=== PATIENT | female | born 1995 | race Hispanic/Latino ===

== ENCOUNTER 2020-08-19 21:58 | Emergency (ER) | payer OTHER, SELFPAY ==
[2020-08-20 00:19] LABS: Absolute Lymphocytes (CBC) 1.5 K/uL (0.7-4.9); Basophils % 0.5 % (0-1.3); Hematocrit 42.6 % (36.0-45.0); Lymphocytes % 17.3 % (15.3-44.8); MPV 8.7 fL (7.6-11.3); RBC Red Blood Cell Count 4.88 M/uL (3.86-4.86)
[2020-08-20 00:35] LABS: Albumin 3.9 g/dL (3.4-5.0); Bilirubin Direct 0.1 mg/dL (0-0.2); Bilirubin Total 0.4 mg/dL (0.2-1.0); Potassium 3.5 mmol/L (3.5-5.1)
--- NOTE | 2020-08-20 01:30 | ER ---
Nurse's Notes [facility] Name: Harper Cool Age: 24 yrs Sex: Female : 1995 Arrival Date: 08/19/2020 Time: 22:01 Bed 18 Private MD: Diagnosis: Cough;Willard Virus Exposure Presentation: 08/19 22:10 Chief complaint: Patient states: Chest pain with coughing, vomiting that began at the lp1 beginning of this week; States tested positive last week with symptom of low grade fever. Coronavirus screen: Client denies travel out of the [place] in the last 14 days. cough unrelated to allergies, fatigue, fever, nausea, sore throat, loss of taste or smell, vomiting. Client presents with at least one sign or symptom that may indicate coronavirus-19. Standard/surgical mask placed on the client. Provider contacted for isolation considerations. Ebola Screen: No symptoms or risks identified at this time. Risk Assessment: Do you want to hurt yourself or someone else? Patient reports no desire to harm self or others. Onset of symptoms was August 15, 2020. 22:10 Method Of Arrival: Ambulatory lp1 22:10 Acuity: TOBIN 3 lp1 22:19 Initial Sepsis Screen: Does the patient meet any 2 criteria? No. Patient's initial lp1 sepsis screen is negative. Does the patient have a suspected source of infection? No. Patient's initial sepsis screen is negative. 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 - Social history:: Smoking status: Patient denies any tobacco usage or history of. Screenin:13 Abuse screen: Denies threats or abuse. Denies injuries from another. Nutritional lp1 screening: No deficits noted. Tuberculosis screening: No symptoms or risk factors identified. Fall Risk None identified. Assessment: 22:10 General: Appears in no apparent distress. uncomfortable, Behavior is calm, cooperative, rr5 appropriate for age. Pain: Complains of pain in chest Pain currently is 5 out of 10 on a pain scale. Quality of pain is described as aching, Pain began gradually, Is intermittent. Neuro: Level of Consciousness is awake, alert, obeys commands, Oriented to person, place, time, situation. Cardiovascular: Reports chest pain, Capillary refill < 3 seconds Patient's skin is warm and dry. Respiratory: Reports cough that is Airway is patent Respiratory effort is even, unlabored, Respiratory pattern is regular, symmetrical. GI: Reports vomiting. : No signs and/or symptoms were reported regarding the genitourinary system. EENT: No signs and/or symptoms were reported regarding the EENT system. Derm: Skin is intact, is healthy with good turgor, Skin temperature is warm. Musculoskeletal: Circulation, motion, and sensation intact. Capillary refill < 3 seconds. 23:40 Reassessment: Patient appears in no apparent distress at this time. Patient is alert, rr5 oriented x 3, equal unlabored respirations, skin warm/dry/pink. seen and examined by ED provider. 08/20 00:20 Reassessment: Patient appears in no apparent distress at this time. Patient is alert, rr5 oriented x 3, equal unlabored respirations, skin warm/dry/pink. awaiting for results. 00:55 Reassessment: Patient appears in no apparent distress at this time. ED provider rr5 informed patient persistent coughing. 01:45 Reassessment: Patient appears in no apparent distress at this time. Patient is alert, rr5 oriented x 3, equal unlabored respirations, skin warm/dry/pink. discharge instruction given and explained without complaints made. Vital Signs: 08/19 22:19 BP 116 / 60; Pulse 89; Resp 18; Temp 98.8(O); Pulse Ox 99% on R/A; Weight 77.11 kg (R); lp1 Height 5 ft. 5 in. (165.10 cm); 23:00 BP 126 / 89; Pulse 86; Resp 15; Pulse Ox 98% ; rr5 08/20 00:00 BP 122 / 79; Pulse 75; Resp 14; Pulse Ox 100% ; rr5 01:10 BP 134 / 80; Pulse 80; Resp 16; Pulse Ox 99% ; rr5 01:45 BP 131 / 70; Pulse 89; Resp 20; Temp 99; Pulse Ox 99% ; rr5 08/19 22:19 Body Mass Index 28.29 (77.11 kg, 165.10 cm) lp1 ED Course: 08/19 22:01 Patient arrived in ED. am2 22:10 Patient has correct armband on for positive identification. Placed in gown. Bed in low rr5 position. Call light in reach. Pulse ox on. NIBP on. 22:12 Triage completed. lp1 22:12 Arm band placed on. lp1 22:21 Tone Singh, RN is Primary Nurse. rr5 22:51 Gorge Nunez MD is Attending Physician. 7 23:00 Inserted saline lock: 22 gauge in right forearm, using aseptic technique. Blood rr5 collected. 08/20 00:14 Chest Single View XRAY In Process Unspecified. EDMS 01:19 No provider procedures requiring assistance completed. rr5 01:50 IV discontinued, intact, bleeding controlled, No redness/swelling at site. Pressure rr5 dressing applied. Administered Medications: No medications were administered Outcome: 01:30 Discharge ordered by . mh7 01:50 Discharged to home ambulatory. rr5 01:50 Condition: stable 01:50 Discharge instructions given to patient, Instructed on discharge instructions, follow up and referral plans. medication usage, Demonstrated understanding of instructions, follow-up care, medications, Prescriptions given X 4. 01:51 Patient left the ED. rr5 Signatures: Dispatcher [employer] EDMS Omaira Sahni RN RN lp1 Madeline Barron am2 Tone Singh, RN RN rr5 Gorge Nunez MD MD [facility] Corrections: (The following items were deleted from the chart) 08/19 22:20 22:10 Coronavirus screen: Client denies travel out of the [place] in the last 14 days. lp1 cough unrelated to allergies, fatigue, fever, nausea, sore throat, loss of taste or smell, vomiting. lp1
--- NOTE | 2020-08-20 01:31 | EDPHYS ---
Physician Documentation [facility] Name: Harper Cool Age: 24 yrs Sex: Female : 1995 Arrival Date: 08/19/2020 Time: 22:01 Bed 18 Private MD: ED Physician Gorge Nunez HPI: 08/20 01:01 This 24 yrs old Female presents to ER via Ambulatory with complaints of Cough, mh7 Chest Pressure. 01:02 The patient or guardian reports cough, that is intermittent, with productive sputum, mh7 that is white. Onset: The symptoms/episode began/occurred 1 week(s) ago. Severity of symptoms: At their worst the symptoms were moderate, 2 day(s) ago, in the emergency department the symptoms have improved, moderately. Modifying factors: The symptoms are alleviated by nothing, the symptoms are aggravated by nothing. Associated signs and symptoms: Pertinent negatives: diarrhea, ear ache, rhinorrhea, sore throat. 01:04 Associated signs and symptoms: Pertinent positives: chest pain, with cough, fever, mh7 nausea, vomiting, Pertinent negatives:. Patient states that she has had a productive cough for one week. States that her and sister tested positive for COVID two weeks ago.. 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 - Social history:: Smoking status: Patient denies any tobacco usage or history of. ROS: 08/20 01:04 Eyes: Negative for injury, pain, redness, and discharge, ENT: Negative for injury, mh7 pain, and discharge, Neck: Negative for injury, pain, and swelling, Back: Negative for injury and pain, : Negative for injury, bleeding, discharge, and swelling, MS/Extremity: Negative for injury and deformity, Skin: Negative for injury, rash, and discoloration, Neuro: Negative for headache, weakness, numbness, tingling, and seizure, Psych: Negative for depression, anxiety, suicide ideation, homicidal ideation, and hallucinations, Allergy/Immunology: Negative for hives, rash, and allergies, Endocrine: Negative for neck swelling, polydipsia, polyuria, polyphagia, and marked weight changes, Hematologic/Lymphatic: Negative for swollen nodes, abnormal bleeding, and unusual bruising. Exam: 01:27 Constitutional: This is a well developed, well nourished patient who is awake, alert, mh7 and in no acute distress. Head/Face: Normocephalic, atraumatic. Eyes: Pupils equal round and reactive to light, extra-ocular motions intact. Lids and lashes normal. Conjunctiva and sclera are non-icteric and not injected. Cornea within normal limits. Periorbital areas with no swelling, redness, or edema. Neck: Trachea midline, no thyromegaly or masses palpated, and no cervical lymphadenopathy. Supple, full range of motion without nuchal rigidity, or vertebral point tenderness. No Meningismus. Chest/axilla: Normal chest wall appearance and motion. Nontender with no deformity. No lesions are appreciated. Cardiovascular: Regular rate and rhythm with a normal S1 and S2. No gallops, murmurs, or rubs. Normal PMI, no JVD. No pulse deficits. Respiratory: Lungs have equal breath sounds bilaterally, clear to auscultation and percussion. No rales, rhonchi or wheezes noted. No increased work of breathing, no retractions or nasal flaring. Abdomen/GI: Soft, non-tender, with normal bowel sounds. No distension or tympany. No guarding or rebound. No evidence of tenderness throughout. Back: No spinal tenderness. No costovertebral tenderness. Full range of motion. Skin: Warm, dry with normal turgor. Normal color with no rashes, no lesions, and no evidence of cellulitis. MS/ Extremity: Pulses equal, no cyanosis. Neurovascular intact. Full, normal range of motion. Neuro: Awake and alert, GCS 15, oriented to person, place, time, and situation. Cranial nerves II-XII grossly intact. Motor strength 5/5 in all extremities. Sensory grossly intact. Cerebellar exam normal. Normal gait. Psych: Awake, alert, with orientation to person, place and time. Behavior, mood, and affect are within normal limits. Vital Signs: 08/19 22:19 BP 116 / 60; Pulse 89; Resp 18; Temp 98.8(O); Pulse Ox 99% on R/A; Weight 77.11 kg (R); lp1 Height 5 ft. 5 in. (165.10 cm); 23:00 BP 126 / 89; Pulse 86; Resp 15; Pulse Ox 98% ; rr5 08/20 00:00 BP 122 / 79; Pulse 75; Resp 14; Pulse Ox 100% ; rr5 01:10 BP 134 / 80; Pulse 80; Resp 16; Pulse Ox 99% ; rr5 01:45 BP 131 / 70; Pulse 89; Resp 20; Temp 99; Pulse Ox 99% ; rr5 08/19 22:19 Body Mass Index 28.29 (77.11 kg, 165.10 cm) lp1 MDM: 08/19 23:39 Patient medically screened. [facility] 08/20 01:27 Differential Diagnosis: Obstructed Airway Bronchitis Influenza Upper Respiratory [facility] Infection Viral Syndrome Pneumonia. Data reviewed: vital signs, nurses notes, lab test result(s), CBC, electrolytes, urinalysis, EKG, radiologic studies, plain films. Data interpreted: Pulse oximetry: on room air is 99 %. Interpretation: normal. Counseling: I had a detailed discussion with the patient and/or guardian regarding: the historical points, exam findings, and any diagnostic results supporting the discharge/admit diagnosis, lab results, radiology results, the need for outpatient follow up, to return to the emergency department if symptoms worsen or persist or if there are any questions or concerns that arise at home. Response to treatment: the patient's symptoms have markedly improved after treatment. 08/19 22:33 Order name: COVID-19 lp1 08/19 23:41 Order name: CBC with Diff; Complete Time: 00:46 [facility] 08/19 23:41 Order name: Chest Single View XRAY [facility] 08/19 23:41 Order name: Basic Metabolic Panel; Complete Time: 00:46 [facility] 08/19 23:41 Order name: LFT's; Complete Time: 00:46 [facility] 08/19 23:41 Order name: Saline Lock; Complete Time: 00:04 [facility] 08/19 23:41 Order name: EKG - Nurse/Tech; Complete Time: 00:04 [facility] 08/19 23:42 Order name: Urine Dipstick-Ancillary (obtain specimen); Complete Time: 01:08 [facility] 08/19 23:42 Order name: Urine Test (obtain specimen); Complete Time: 01:08 [facility] Administered Medications: No medications were administered Disposition: 08/20/20 01:30 Discharged to Home. Impression: Cough, Willard Virus Exposure. - Condition is Stable. - Discharge Instructions: COVID-19, Cough, Adult, [id number], Viral Respiratory Infection, [id number]-An-Bnux. - Prescriptions for Tessalon Perles 100 mg Oral Capsule - take 1 capsule by ORAL route every 8 hours As needed; 15 capsule. Zithromax Z- Arnie 250 mg Oral Tablet - take 1 tablet by ORAL route as directed for 5 days Day 1 - take two (2) tablets one time. Day 2, 3, 4 , 5 take one (1) tablet once daily.; 6 tablet. Prednisone 20 mg Oral Tablet - take 2 tablet by ORAL route once daily for 5 days; 10 tablet. Albuterol Sulfate 90 mcg/actuation - inhale 1-2 puff by INHALATION route every 4-6 hours; 1 Inhaler. - Medication Reconciliation Form, Thank You Letter, Antibiotic Education, Prescription Opioid Use form. - Follow up: Private Physician; When: 1 - 2 days; Reason: Worsening of condition, Recheck today's complaints, Continuance of care, Re-evaluation by your physician. - Problem is new. - Symptoms have improved. Signatures: Dispatcher [employer] EDMS Omaira Sahni RN RN lp1 Tone Singh RN RN rr5 Gorge Nunez MD MD 7 Corrections: (The following items were deleted from the chart) 01:51 01:30 08/20/2020 01:30 Discharged to Home. Impression: Cough; Willard Virus Exposure. rr5 Condition is Stable. Forms are Medication Reconciliation Form, Thank You Letter, Antibiotic Education, Prescription Opioid Use. Follow up: Private Physician; When: 1 - 2 days; Reason: Worsening of condition, Recheck today's complaints, Continuance of care, Re-evaluation by your physician. Problem is new. Symptoms have improved. [facility]
[2020-08-20 02:07] VITALS: O2SAT 99
[2020-08-20 02:09] VITALS: BP 131/70; TEMP 99
--- NOTE | 2020-08-20 09:35 | RAD REPORT ---
EXAM DESCRIPTION: RAD - Chest Single View - 08/20/2020 12:14 am CLINICAL HISTORY: COUGH COMPARISON: None. FINDINGS: Single frontal radiograph view of the chest. Cardiomediastinal silhouette: Normal size and contour. Lungs: No consolidation, pneumothorax, or pleural effusion. Bones: No acute osseous abnormality. Low lung volumes. Upper abdomen: No abnormality identified. IMPRESSION: 1. No acute pulmonary process identified. Electronically signed by: Kyle Willis 08/20/2020 12:59 AM CDT Due to temporary technical issues with the PACS/Fluency reporting system, reports are being signed by the in house radiologist without review as a courtesy to ensure prompt reporting. The interpreting r adiologist is fully responsible for the content of the report.
== END 2020-08-20 01:51 | disposition home or self-care (01) ==
LOC: ER 21:58
DX: U07.1 COVID-19 (principal)
CPT/HCPCS: 93005; 85025; 80048; 36415; 80076; 71045; 99284; U0002

== ENCOUNTER 2021-07-13 16:19 | Emergency (ER) | payer SELFPAY ==
--- OUTSIDE RECORDS SUMMARY | 2021-07-13 16:23 | XMS REPORT | Continuity of Care Document ---
:1995 Author Organization [facility] t Address [address] [place] [address] Care Team Providers Name Role Phone Stephanie Chirinos Attending Clinician Problems This patient has no known problems. Allergies, Adverse Reactions, Alerts This patient has no known allergies or adverse reactions. Medications This patient has no known medications. Procedures This patient has no known procedures. Encounters Start End Encounter Admission Attending Care Care Encounter Source Date/Time Date/Time Type Type Clinicians Facility Department ID 2021-07-09 2021-07-09 Telephone LYNN Gamboa [id number] 00:00:00 00:00:00 Stephanie Bradley PASTE WORKER [id number] [facility] [id number] MATERNAL [id number] & CHILD 107 [facility] 2021-07-04 2021-07-04 Office LYNN Gamboa [id number] 08:44:49 09:30:49 Visit Stephanie Bradley PASTE WORKER [id number] [facility] [id number] MATERNAL [id number] & CHILD 107 [facility] Results This patient has no known results.
--- NOTE | 2021-07-13 17:40 | ER ---
Nurse's Notes [facility] Name: Harper Cool Age: 25 yrs Sex: Female : 1995 Arrival Date: 07/13/2021 Time: 16:20 Bed Waiting Private MD: Diagnosis: Assessment: 07/13 17:38 Reassessment: Called to Triage twice. No answer and unable to locate patient. ss ED Course: 16:20 Patient arrived in ED. ds1 17:18 Triage completed. iw Administered Medications: No medications were administered Outcome: 17:38 Eloped from waiting room. ss 17:39 Patient left the ED. ss 18:35 Patient left the ED. ss Signatures: Stacy Pollock ds1 Jenae Coronel RN RN Nury Rosario RN RN Corrections: (The following items were deleted from the chart) 17:20 17:14 Chief complaint: Parent and/or Guardian states: fever for 3 days, "bump" iw behind/under left ear for 1.5 weeks. Was started on clindamycin on the , but symptoms getting worse. Went back to PCP today and was sent here for evaluation : 17:14 Ebola Screen: Patient negative for fever greater than or equal to 101.5 degrees iw Fahrenheit, and additional compatible Ebola Virus Disease symptoms Patient denies exposure to infectious person. Patient denies travel to an Ebola-affected area in the 21 days before illness onset. No symptoms or risks identified at this time. 17: 17:14 Onset of symptoms was July 13, 2021 [facility] 17:14 Method Of Arrival: Ambulatory [facility] 17:14 Acuity: TOBIN 3 [facility] 17:14 Coronavirus screen: Client denies travel out of the [place] in the last 14 days. iw fever, : 17:14 Initial Sepsis Screen: Does the patient meet any 2 criteria? No. Patient's iw initial sepsis screen is negative. Does the patient have a suspected source of infection? No. Patient's initial sepsis screen is negative. : 17:14 Risk Assessment: Do you want to hurt yourself or someone else? Patient reports no iw desire to harm self or others. : 17:14 Chief complaint: Parent and/or Guardian states: fever for 3 days, "bump" iw behind/under left ear for 1.5 weeks. Was started on clindamycin on the 10th, but symptoms getting worse. Went back to PCP today and was sent here for evaluation iw 17:24 17:14 Pulse 124bpm; Resp 22bpm; Pulse Ox 99%; Temp 100.3F; 31.03 kg; Pain 7/10; iw iw
== END 2021-07-13 18:35 | disposition left against medical advice (07) ==
LOC: ER 16:19
DX: Z53.21 Procedure and treatment not carried out due to patient leaving prior to being seen by health care provider (principal)
CPT/HCPCS: 99281

== ENCOUNTER 2021-10-18 12:56 | Emergency (ER) | payer SELFPAY ==
--- OUTSIDE RECORDS SUMMARY | 2021-10-18 13:01 | XMS REPORT | Continuity of Care Document ---
:1995 Author Organization [facility] t Address [address] [place] [address] [address] [place] [address] Care Team Providers Name Role Phone ANGELA NELSON Primary Care Physician Unavailable Kirk NDIAYE Attending Clinician Unavailable Calvin FERRER Attending Clinician Unavailable Senthil MANAGER EMBALMER FUNERAL DIRECTOR, R Attending Clinician Julia VANEGAS Attending Clinician Unavailable Visit, Nurse Attending Clinician Unavailable Julia Martínez Attending Clinician Doctor Unassigned, Name Attending Clinician Unavailable BEN NELSON Attending Clinician Unavailable Ben Nelson MD Attending Clinician Jo-Ann HERNANDEZ Attending Clinician Tremayne CAMARENA Attending Clinician Oziel MONREAL, S Attending Clinician Juanjose Johnston MD Attending Clinician Payers Payer Name Policy Type Policy Number Effective Date Expiration Date S ource Advance Directives Directive Decision Effective Termination Comments Source Date Date Healthcare Agents on N/A [facility] Agent Medical RelationshipCommunicationHighsmith-Rainey Specialty Hospitala [facility] Care [phone] (Mobile) Problems Condition Condition Condition Status Onset Resolution Last Treating Co mments Source Name Details Category Date Date Treatment Clinician Date Screening Screening Disease Active Uni vers examinatio examinatio 06-13 it [place] of n [place] STD n [place] ([place] Medi liane transmitte transmitte Br anch d disease) d disease) BMI BMI Disease Active Univers 35.0-35.9, 35.0-35.9, 7-14 it y of adult adult 00:00: [place] [address] Medical Branch Absence of Absence of Disease Active U nivers menstruati menstruati 06-13 it y of on on 00:00: [place] [address] Medical Branch Wound Wound Disease Active Univers infection infection 06-05 ity of 00:00: [place] [address] Medical Branch Foreign Foreign Disease Active Univers body body 6-04 [place] accidental [place] 00 Medical during a during a Branch procedure procedure Disease Active U nivers complicati complicati - it y of on on 00:00: [place] [address] Medical Branch S/P S/P Disease Active Univers 6-03 ity of section section 00:00: [place] [address] Medical Branch Foreign Foreign Disease Active Overview: Univ ers body body 6-03 Formattin ity of accidental accidental 00:00: g of this [place] ly left ly left 00 note Medical during a during a might be Bran ch procedure, procedure, different initial initial from the encounter encounter original. 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, onitis, 5-29 ity of [place] current 00 Medical hospitaliz hospitaliz Br anch ation ation Displaceme Displaceme Disease Active U nivers nt of nt of 5-29 ity of epidural epidural 00:00: [place] infusion infusion 00 Medica l catheter catheter Branch Class 2 Class 2 Disease Active Univers obesity obesity 5-29 it[place] of with body with body 00:[place] mass index mass index 00 Me dical (BMI) of (BMI) of Branch 35.0 to 35.0 to 35.9 in 35.9 in adult, adult, unspecifie unspecifie d obesity d obesity type, type, unspecifie unspecifie d whether d whether serious serious comorbidit comorbidit y present y present Delayed Delayed Disease Active Univers delivery delivery 5-26 ity of after SROM after SROM 00:[place] (spontaneo (spontaneo 00 Me dical us rupture us rupture Br anch of of membranes) membranes) antepart antepart Supervisio Supervisio Disease Active 2017-12 U nivers n of high n of high 0-03 ity of risk risk 00:00: [place] , , 00 Me dical antepartum antepartum Br anch History of History of Disease Active 2017-12 U nivers anxiety anxiety 0-03 ity of 00:00: [place] [address] Medical Branch History of History of Disease Active 2017-12 U nivers depression depression 0-03 it y of 00:00: [address] Allergies, Adverse Reactions, Alerts Allergy Allergy Status Severity Reaction(s) Onset Inactive Treating Comm ents Source Name Type Date Date Clinician NO KNOWN Drug Active Univers ALLERGIE Class ity of S [facility] Social History Social Habit Start Date Stop Date Quantity Comments Source Exposure to Not sure [facility] SARS[facility]CoV-2 [facility] (event[facility] Branch Tobacco use and 2021-07-04 2021-07-04 Never used Universit y of exposure 00:00:00 00:00:[address] [facility] Alcohol intake 2021-07-04 2021-07-04 Current [facility] 00:00:00 00:00:00 non-drinker of [facility] alcohol [place] (finding) Sex Assigned At [birth year] Universit y of 00:00:00 00:00:[address] [facility] Smoking Status Start Date Stop Date Source Never smoker [facility] Medications Ordered Filled Start Stop Current Ordering Indication Dosage Frequency Signature Comments Components Source Medication Medication Date Date Medication? Clinician (SIG) Name Name norgestimat Yes [id number] 1{tbl} Take 1 Univers e-ethinyl 8-09 tablet by ity o f estradioL 00:00: mouth [place] 0.18/0.215/ 00 daily. Medica l 0.25 mg-25 Branch mcg tablet norgestimat Yes [id number] 1{tbl} Take 1 Univers e-ethinyl 8-04 tablet by ity o f estradioL 00:00: mouth [place] 0.18/0.215/ 00 daily. Medica l 0.25 mg-25 Branch mcg tablet norgestimat Yes [id number] 1{tbl} Take 1 Univers e-ethinyl 8-04 tablet by ity o f estradioL 00:00: mouth [place] 0.18/0.215/ 00 daily. Medica l 0.25 mg-25 Branch mcg tablet norgestimat 2020-0 Yes [id number] 1{tbl} Take 1 Univers e-ethinyl 8-04 tablet by ity o f estradioL 00:00: mouth [place] 0.18/0.215/ 00 daily. Medica l 0.25 mg-25 Branch mcg tablet norgestimat 202- No [id number] 1{tbl} Take 1 Univers e-ethinyl 8-04 08-09 tablet by ity of estradioL 00:00: 00:00 mouth [place] 0.18/0.215/ 00 :00 daily. Medica l 0.25 mg-25 Branch mcg tablet terbinafine Yes 250mg Take 250 U nivers HCL 250 mg 4-25 mg by ity of tablet 00:00: mouth [place] 00 daily. Medical Branch terbinafine 2020- No 250mg Take 250 Univers HCL 250 mg 4-25 07-14 mg by ity of tablet 00:00: 00:00 mouth [place] 00 :00 daily. Medical Branch terbinafine 2020- No 250mg Take 250 Univers HCL 250 mg 4-25 07-14 mg by ity of tablet 00:00: 00:00 mouth [place] 00 :00 daily. Medical Branch nystatin Yes [id number] Apply to Univers 100,000 8-19 area(s) 2 ity of unit/gram 00:00: (two) [place] powder 00 times Medical daily. Branch nystatin 2018-0 Yes [id number] Apply to Univers 100,000 8-19 area(s) 2 ity of unit/gram 00:00: (two) [place] powder 00 times Medical daily. Branch nystatin 2019-0 Yes [id number] Apply to Univers 100,000 8-19 area(s) 2 ity of unit/gram 00:00: (two) [place] powder 00 times Medical daily. Branch nystatin 2019-0 Yes [id number] Apply to Univers 100,000 8-19 area(s) 2 ity of unit/gram 00:00: (two) [place] powder 00 times Medical daily. Branch nystatin 2019-0 Yes [id number] Apply to Univers 100,000 8-19 area(s) 2 ity of unit/gram 00:00: (two) [place] powder 00 times Medical daily. Branch nystatin 2019-0 Yes [id number] Apply to Univers 100,000 8-19 area(s) 2 ity of unit/gram 00:00: (two) [place] powder 00 times Medical daily. Branch nystatin 2019-0 Yes [id number] Apply to Univers 100,000 8-19 area(s) 2 ity of unit/gram 00:00: (two) [place] powder 00 times Medical daily. Branch nystatin 2019-0 2021- No [id number] Apply to Univers 100,000 8-19 07-14 area(s) 2 ity of unit/gram 00:00: 00:00 (two) [place] powder 00 :00 times Medical daily. Branch nystatin 2019-0 2021- No [id number] Apply to Univers 100,000 8-19 07-14 area(s) 2 ity of unit/gram 00:00: 00:00 (two) [place] powder 00 :00 times Medical daily. Branch hydrOXYzine 2018- Yes [id number] 10mg Take 1 Univers 10 mg 8-16 tablet by ity of tablet 00:00: mouth [place] 00 every 6 Medical (six) Branch hours as needed for Anxiety. hydrOXYzine 2019 Yes [id number] 10mg Take 1 Univers 10 mg 8-16 tablet by ity of tablet 00:00: mouth [place] 00 every 6 Medical (six) Branch hours as needed for Anxiety. hydrOXYzine 2019 2019- No [id number] 10mg Take 1 Univers 10 mg 8-16 08-26 tablet by ity of tablet 00:00: 00:00 mouth [place] 00 :00 every 6 Medical (six) Branch hours as needed for Anxiety. hydrOXYzine 2019- No [id number] 10mg Take 1 Univers 10 mg 8-16 08-26 tablet by ity of tablet 00:00: 00:00 mouth [place] 00 :00 every 6 Medical (six) Branch hours as needed for Anxiety. hydrOXYzine 2019- No [id number] 10mg Take 1 Univers 10 mg 8-16 -26 tablet by ity of tablet 00:00: 00:00 mouth [place] 00 :00 every 6 Medical (six) Branch hours as needed for Anxiety. PNV 2019- No Take by Univers no.95/quinn 06-28-29 mouth. ity o f us 18:36: 00:00 [place] fum/folic 10 :00 Medical ac Branch ( ORAL) docusate Yes [id number] 100mg Take 1 Un [place] 100 mg 7-07 capsule by ity of capsule 00:00: mouth [place] 00 daily. Medical Branch docusate 0 Yes [id number] 100mg Take 1 Un [place] 100 mg 7-07 capsule by ity of capsule 00:00: mouth [place] 00 daily. Medical Branch docusate 2018- Yes [id number] 100mg Take 1 Un [place] 100 mg 7-07 capsule by ity of capsule 00:00: mouth [place] 00 daily. Medical Branch docusate Yes [id number] 100mg Take 1 Un [place] 100 mg 7-07 capsule by ity of capsule 00:00: mouth [place] 00 daily. Medical Branch docusate 2018-0 Yes [id number] 100mg Take 1 Un [place] 100 mg 7-07 capsule by ity of capsule 00:00: mouth [place] 00 daily. Medical Branch docusate 2018-0 Yes [id number] 100mg Take 1 Un [place] 100 mg 7-07 capsule by ity of capsule 00:00: mouth [place] 00 daily. Medical Branch docusate 2019-0 Yes [id number] 100mg Take 1 Un [place] 100 mg 7-07 capsule by ity of capsule 00:00: mouth [place] 00 daily. Medical Branch docusate 2019-0 Yes [id number] 100mg Take 1 Un [place] 100 mg 7-07 capsule by ity of capsule 00:00: mouth [place] 00 daily. Medical Branch docusate 2018-0 2019- No [id number] 100mg Take 1 U nivers 100 mg 7-07 08-26 capsule by ity of capsule 00:00: 00:00 mouth [place] 00 :00 daily. Medical Branch docusate 0 2019- No [id number] 100mg Take 1 U nivers 100 mg 06-06 capsule by ity of capsule 00:00: 00:00 mouth [place] 00 :00 daily. Medical Branch docusate 2019- No [id number] 100mg Take 1 U nivers 100 mg 06-06 capsule by ity of capsule 00:00: 00:00 mouth [place] 00 :00 daily. Medical Branch 2019- No [id number] 1{tbl} Take 1 Univers vitamin 06-06 tablet by ity of w/FA tablet 00:00: [place] :00 daily. Medical Branch nystatin 2019-0 Yes [id number] Apply to Univers 100,000 6-18 area(s) 2 ity of unit/gram 00:00: (two) [place] powder 00 times Medical daily. Branch sodium 2019-0 Yes [id number] 5mL Irrigate 5 Univers chlor-hypoc 6-18 mL daily. ity of hlorous 00:00: [place] acid (VASHE 00 Medical WOUND Branch THERAPY) 0.033 % IrSl nystatin 2019-0 Yes [id number] Apply to Univers 100,000 6-18 area(s) 2 ity of unit/gram 00:00: (two) [place] powder 00 times Medical daily. Branch sodium 2019-0 Yes [id number] 5mL Irrigate 5 Univers chlor-hypoc 6-18 mL daily. ity of hlorous 00:00: [place] acid (VASHE 00 Medical WOUND Branch THERAPY) 0.033 % IrSl nystatin 2019-0 Yes [id number] Apply to Univers 100,000 6-18 area(s) 2 ity of unit/gram 00:00: (two) [place] powder 00 times Medical daily. Branch sodium 2019-0 Yes [id number] 5mL Irrigate 5 Univers chlor-hypoc 6-18 mL daily. ity of hlorous 00:00: [place] acid (VASHE 00 Medical WOUND Branch THERAPY) 0.033 % IrSl nystatin 2019-0 Yes [id number] Apply to Univers 100,000 6-18 area(s) 2 ity of unit/gram 00:00: (two) [place] powder 00 times Medical daily. Branch sodium 2019-0 Yes [id number] 5mL Irrigate 5 Univers chlor-hypoc 6-18 mL daily. ity of hlorous 00:00: [place] acid (VASHE 00 Medical WOUND Branch THERAPY) 0.033 % IrSl nystatin 2019-0 Yes [id number] Apply to Univers 100,000 6-18 area(s) 2 ity of unit/gram 00:00: (two) [place] powder 00 times Medical daily. Branch sodium 2019-0 Yes [id number] 5mL Irrigate 5 Univers chlor-hypoc 6-18 mL daily. ity of hlorous 00:00: [place] acid (VASHE 00 Medical WOUND Branch THERAPY) 0.033 % IrSl sodium 2019-0 Yes [id number] 5mL Irrigate 5 Univers chlor-hypoc 6-18 mL daily. ity of hlorous 00:00: [place] acid (VASHE 00 Medical WOUND Branch THERAPY) 0.033 % IrSl sodium 2019-0 Yes [id number] 5mL Irrigate 5 Univers chlor-hypoc 6-18 mL daily. ity of hlorous 00:00: [place] acid (VASHE 00 Medical WOUND Branch THERAPY) 0.033 % IrSl sodium 2019-0 Yes [id number] 5mL Irrigate 5 Univers chlor-hypoc 6-18 mL daily. ity of hlorous 00:00: [place] acid (VASHE 00 Medical WOUND Branch THERAPY) 0.033 % IrSl sodium 2019-0 Yes [id number] 5mL Irrigate 5 Univers chlor-hypoc 6-18 mL daily. ity of hlorous 00:00: [place] acid (VASHE 00 Medical WOUND Branch THERAPY) 0.033 % IrSl sodium 2019-0 Yes [id number] 5mL Irrigate 5 Univers chlor-hypoc 6-18 mL daily. ity of hlorous 00:00: [place] acid (VASHE 00 Medical WOUND Branch THERAPY) 0.033 % IrSl sodium 2019-0 Yes [id number] 5mL Irrigate 5 Univers chlor-hypoc 6-18 mL daily. ity of hlorous 00:00: [place] acid (VASHE 00 Medical WOUND Branch THERAPY) 0.033 % IrSl sodium 2019-0 Yes [id number] 5mL Irrigate 5 Univers chlor-hypoc 6-18 mL daily. ity of hlorous 00:00: [place] acid (VASHE 00 Medical WOUND Branch THERAPY) 0.033 % IrSl nystatin 2019-0 Yes [id number] Apply to Univers 100,000 6-18 area(s) 2 ity of unit/gram 00:00: (two) [place] powder 00 times Medical daily. Branch sodium 2019-0 Yes [id number] 5mL Irrigate 5 Univers chlor-hypoc 6-18 mL daily. ity of hlorous 00:00: [place] acid (VASHE 00 Medical WOUND Branch THERAPY) 0.033 % IrSl nystatin 2019-0 Yes [id number] Apply to Univers 100,000 6-18 area(s) 2 ity of unit/gram 00:00: (two) [place] powder 00 times Medical daily. Branch sodium 2019-0 Yes [id number] 5mL Irrigate 5 Univers chlor-hypoc 6-18 mL daily. ity of hlorous 00:00: [place] acid (VASHE 00 Medical WOUND Branch THERAPY) 0.033 % IrSl sodium 2019-0 2021- No [id number] 5mL Irrigate 5 Univers chlor-hypoc 6-18 07-14 mL daily. it y of hlorous 00:00: 00:00 [place] acid (VASHE 00 :00 Medical WOUND Branch THERAPY) 0.033 % IrSl sodium 2019-0 2021- No [id number] 5mL Irrigate 5 Univers chlor-hypoc 6-18 07-14 mL daily. it y of hlorous 00:00: 00:00 [place] acid (VASHE 00 :00 Medical WOUND Branch THERAPY) 0.033 % IrSl nystatin 2019-0 2019- No [id number] Apply to Univers 100,000 6-18 08-19 area(s) 2 ity of unit/gram 00:00: 00:00 (two) [place] powder 00 :00 times Medical daily. Branch Gauze 2019-0 Yes [id number] Use as Unive rs Bandage 3 X 6-13 directed ity of 3 " Bndg 00:00: [place] 00 Medical Branch Gauze 2019-0 Yes [id number] Use as Unive rs Bandage 3 X 6-13 directed ity of 3 " Bndg 00:00: [place] 00 Medical Branch Gauze 2019-0 Yes [id number] Use as Unive rs Bandage 3 X 6-13 directed ity of 3 " Bndg 00:00: [place] 00 Medical Branch Gauze 2019-0 Yes [id number] Use as Unive rs Bandage 3 X 6-13 directed ity of 3 " Bndg 00:00: [place] 00 Medical Branch Gauze 2019-0 Yes [id number] Use as Unive rs Bandage 3 X 6-13 directed ity of 3 " Bndg 00:00: [place] 00 Medical Branch Gauze Yes [id number] Use as Unive rs Bandage 3 X 6-13 directed ity of 3 " Bndg 00:00: [place] 00 Medical Branch Gauze Yes [id number] Use as Unive rs Bandage 3 X 6-13 directed ity of 3 " Bndg 00:00: [place] 00 Medical Branch Gauze 0 Yes [id number] Use as Unive rs Bandage 3 X 6-13 directed ity of 3 " Bndg 00:00: [place] 00 Medical Branch Gauze 2018-0 2019- No [id number] Use as Univ ers Bandage 3 X 6-13 08-26 directed ity of 3 " Bndg 00:00: 00:00 [place] 00 :00 Medical Branch Gauze 2018- 2019- No [id number] Use as Univ ers Bandage 3 X 6-13 08-26 directed ity of 3 " Bndg 00:00: 00:00 [place] 00 :00 Medical Branch Gauze 2019- No [id number] Use as Univ ers Bandage 3 X 6-13 08- directed ity of 3 " Bndg 00:00: 00:00 [place] 00 :00 Medical Branch ibuprofen Yes [id number] 600mg Take 1 Univers 600 mg 6-07 tablet by ity of tablet 00:00: mouth [place] 00 every 6 Medical (six) Branch hours as needed for Pain (scale 1-3), Pain (scale 4-6) or Alternate with [place] for pain scale 4-6. ibuprofen Yes [id number] 600mg Take 1 Univers 600 mg 6-07 tablet by ity of tablet 00:00: mouth [place] 00 every 6 Medical (six) Branch hours as needed for Pain (scale 1-3), Pain (scale 4-6) or Alternate with [place] for pain scale 4-6. ibuprofen Yes [id number] 600mg Take 1 Univers 600 mg 6-07 tablet by ity of tablet 00:00: mouth [place] 00 every 6 Medical (six) Branch hours as needed for Pain (scale 1-3), Pain (scale 4-6) or Alternate with [place] for pain scale 4-6. ibuprofen 2019-0 Yes [id number] 600mg Take 1 Univers 600 mg 6-07 tablet by ity of tablet 00:00: mouth [place] 00 every 6 Medical (six) Branch hours as needed for Pain (scale 1-3), Pain (scale 4-6) or Alternate with [place] for pain scale 4-6. ibuprofen 2019 Yes [id number] 600mg Take 1 Univers 600 mg 6-07 tablet by ity of tablet 00:00: mouth [place] 00 every 6 Medical (six) Branch hours as needed for Pain (scale 1-3), Pain (scale 4-6) or Alternate with [place] for pain scale 4-6. ibuprofen 2019 Yes [id number] 600mg Take 1 Univers 600 mg 6-07 tablet by ity of tablet 00:00: mouth [place] 00 every 6 Medical (six) Branch hours as needed for Pain (scale 1-3), Pain (scale 4-6) or Alternate with [place] for pain scale 4-6. ibuprofen Yes [id number] 600mg Take 1 Univers 600 mg 6-07 tablet by ity of tablet 00:00: mouth [place] 00 every 6 Medical (six) Branch hours as needed for Pain (scale 1-3), Pain (scale 4-6) or Alternate with [place] for pain scale 4-6. ibuprofen 2019 Yes [id number] 600mg Take 1 Univers 600 mg 6-07 tablet by ity of tablet 00:00: mouth [place] 00 every 6 Medical (six) Branch hours as needed for Pain (scale 1-3), Pain (scale 4-6) or Alternate with [place] for pain scale 4-6. ibuprofen 2019- No [id number] 600mg Take 1 Univers 600 mg 6-07 08-26 tablet by ity of tablet 00:00: 00:00 mouth [place] 00 :00 every 6 Medical (six) Branch hours as needed for Pain (scale 1-3), Pain (scale 4-6) or Alternate with [place] for pain scale 4-6. ibuprofen 2019- No [id number] 600mg Take 1 Univers 600 mg 6-07 08-26 tablet by ity of tablet 00:00: 00:00 mouth [place] 00 :00 every 6 Medical (six) Branch hours as needed for Pain (scale 1-3), Pain (scale 4-6) or Alternate with [place] for pain scale 4-6. ibuprofen 2019- No [id number] 600mg Take 1 Univers 600 mg 05-07 tablet by ity of tablet 00:00: 00:00 mouth [place] 00 :00 every 6 Medical (six) Branch hours as needed for Pain (scale 1-3), Pain (scale 4-6) or Alternate with [place] for pain scale 4-6. Polyethylen 2018- Yes [id number] 17g Take 1 Univers e Glycol 5-29 Packet by ity of 3350 17 00:00: mouth 2 [place] gram powder 00 (two) Medical times Branch daily. ferrous 2018- Yes [id number] 325mg Take 1 Uni vers sulfate 325 5-29 tablet by ity of mg (65 mg 00:00: mouth 2 [place] iron) 00 (two) Medical tablet times Branch daily. Polyethylen Yes [id number] 17g Take 1 Univers e Glycol 5-29 Packet by ity of 3350 17 00:00: mouth 2 [place] gram powder 00 (two) Medical times Branch daily. ferrous 2018- Yes [id number] 325mg Take 1 Uni vers sulfate 325 5-29 tablet by ity of mg (65 mg 00:00: mouth 2 [place] iron) 00 (two) Medical tablet times Branch daily. Polyethylen Yes [id number] 17g Take 1 Univers e Glycol 5-29 Packet by ity of 3350 17 00:00: mouth 2 [place] gram powder 00 (two) Medical times Branch daily. ferrous 2018- Yes [id number] 325mg Take 1 Uni vers sulfate 325 5-29 tablet by ity of mg (65 mg 00:00: mouth 2 [place] iron) 00 (two) Medical tablet times Branch daily. Polyethylen 2018- Yes [id number] 17g Take 1 Univers e Glycol 5-29 Packet by ity of 3350 17 00:00: mouth 2 [place] gram powder 00 (two) Medical times Branch daily. ferrous 2018- Yes [id number] 325mg Take 1 Uni vers sulfate 325 5-29 tablet by ity of mg (65 mg 00:00: mouth 2 [place] iron) 00 (two) Medical tablet times Branch daily. Polyethylen 2018- Yes [id number] 17g Take 1 Univers e Glycol 5-29 Packet by ity of 3350 17 00:00: mouth 2 [place] gram powder 00 (two) Medical times Branch daily. ferrous 2018- Yes [id number] 325mg Take 1 Uni vers sulfate 325 5-29 tablet by ity of mg (65 mg 00:00: mouth 2 [place] iron) 00 (two) Medical tablet times Branch daily. Polyethylen 2018- Yes [id number] 17g Take 1 Univers e Glycol 5-29 Packet by ity of 3350 17 00:00: mouth 2 [place] gram powder 00 (two) Medical times Branch daily. ferrous 2018- Yes [id number] 325mg Take 1 Uni vers sulfate 325 5-29 tablet by ity of mg (65 mg 00:00: mouth 2 [place] iron) 00 (two) Medical tablet times Branch daily. Polyethylen 2018- Yes [id number] 17g Take 1 Univers e Glycol 5-29 Packet by ity of 3350 17 00:00: mouth 2 [place] gram powder 00 (two) Medical times Branch daily. ferrous Yes [id number] 325mg Take 1 Uni vers sulfate 325 5-29 tablet by ity of mg (65 mg 00:00: mouth 2 [place] iron) 00 (two) Medical tablet times Branch daily. Polyethylen Yes [id number] 17g Take 1 Univers e Glycol 5-29 Packet by ity of 3350 17 00:00: mouth 2 [place] gram powder 00 (two) Medical times Branch daily. ferrous Yes [id number] 325mg Take 1 Uni vers sulfate 325 5-29 tablet by ity of mg (65 mg 00:00: mouth 2 [place] iron) 00 (two) Medical tablet times Branch daily. Polyethylen 2019- No [id number] 17g Take 1 Univers e Glycol 5-29 08-26 Packet by ity o f 3350 17 00:00: 00:00 mouth 2 [place] gram powder 00 :00 (two) Medical times Branch daily. ferrous 2019- No [id number] 325mg Take 1 Un [place] sulfate 325 5-29 08-26 tablet by it y of mg (65 mg 00:00: 00:00 mouth [place] iron) 00 :00 (two) Medical tablet times Branch daily. Polyethylen 2019- No [id number] 17g Take 1 Univers e Glycol 5-29 08-26 Packet by ity o f 3350 17 00:00: 00:00 mouth 2 [place] gram powder 00 :00 (two) Medical times Branch daily. ferrous 2018- No [id number] 325mg Take 1 Un [place] sulfate 325 04-28 tablet by it y of mg (65 mg 00:00: 00:00 mouth [place] iron) 00 :00 (two) Medical tablet times Branch daily. Polyethylen 2019- No [id number] 17g Take 1 Univers e Glycol 04-28 Packet by [facility] f 3350 17 00:00: 00:00 mouth 2 [place] gram powder 00 :00 (two) Medical times Branch daily. ferrous 2018- No [id number] 325mg Take 1 Un [place] sulfate 325 04-28 tablet by it y of mg (65 mg 00:00: 00:00 mouth [place] iron) 00 :00 (two) Medical tablet times [place] daily. No known No Univers medications [facility] No known No Univers medications [facility] No known No Univers medications [facility] No known No Univers medications [facility] No known No Univers medications [facility] Immunizations Ordered Filled Immunization Date Status Comments [facility] e Immunization Name Name Td 2019-04-01 Completed University of 00:00:[address] [facility] Tdap 2019-04-01 Completed University of 00:00:[address] [facility] Tdap 2019-04-01 Completed University of 00:00:[address] [facility] Tdap 2019-04-01 Completed University of 00:00:[address] [facility] Tdap 2019-04-01 Completed University of 00:00:[address] [facility] Tdap 2019-04-01 Completed University of 00:00:[address] [facility] Tdap 2019-04-01 Completed University of 00:00:[address] [facility] Tdap 2019-04-01 Completed University of 00:00:[address] [facility] Tdap 2019-04-01 Completed University of 00:00:[address] [facility] Tdap 2019-04-01 Completed University of 00:00:[address] [facility] TDAP 2019-04-01 Completed University of 00:00:[address] [facility] TDAP 2019-04-01 Completed University of 00:00:[address] [facility] TDAP 2019-04-01 Completed University of 00:00:[address] [facility] TDAP 2019-04-01 Completed University of 00:00:00 [place] [facility] TDAP 2019-04-01 Completed University of 00:00:00 [place] [facility] TDAP 2019-04-01 Completed University of 00:00:00 [place] [facility] TDAP 2019-04-01 Completed University of 00:00:00 [place] [facility] TDAP 2019-04-01 Completed University of 00:00:00 [place] [facility] TDAP 2019-04-01 Completed [facility] 00:00:00 [facility] TDAP 2019-04-01 Completed [facility] 00:00:00 [facility] TDAP 2019-04-01 Completed [facility] 00:00:00 [facility] TDAP 2019-04-01 Completed [facility] 00:00:00 [facility] TDAP 2019-04-01 Completed [facility] 00:00:00 [facility] Tdap 2019-04-01 Completed [facility] 00:00:00 [facility] Tdap 2019-04-01 Completed [facility] 00:00:[address] [facility] Vital Signs Vital Name Observation Time Observation Value Comments Source Systolic blood 2021-07-04 14:18:00 127 mm[Hg] Univer sity of pressure [facility] Diastolic blood 2021-07-04 14:18:00 78 mm[Hg] Unive rsity of [facility] Heart rate 2021-07-04 14:18:00 62 /min [facility] Body temperature 2021-07-04 14:18:[address] [facility] Respiratory rate 2021-07-04 14:18:00 16 /min [facility] Body height 2021-07-04 14:18:00 162.6 cm [facility] Body weight 2021-07-04 14:18:00 92.987 kg [facility] BMI 2021-07-04 14:18:00 35.19 kg/m2 [facility] Systolic blood 2021-07-04 14:18:00 127 mm[Hg] Univer sity of pressure [facility] Diastolic blood 2021-07-04 14:18:00 78 mm[Hg] Unive rsity of pressure [facility] Heart rate 2021-07-04 14:18:00 62 /min [facility] Body temperature 2021-07-04 14:18:00 36.89 Kalyn Univ ers[facility] Respiratory rate 2021-07-04 14:18:00 16 /min Univ ersity of [facility] Body height 2021-07-04 14:18:00 162.6 cm [facility] Body weight 2021-07-04 14:18:00 92.987 kg [facility] BMI 2021-07-04 14:18:00 35.19 kg/m2 [facility] Systolic blood 2021-06-19 16:12:00 125 mm[Hg] Univer sity of pressure [facility] Diastolic blood 2021-06-19 16:12:00 71 mm[Hg] Unive rsity of pressure [facility] Heart rate 2021-06-19 16:12:00 73 /min [facility] Body temperature 2021-06-19 16:12:00 36.56 Kalyn [facility] Respiratory rate 2021-06-19 16:12:00 18 /min Univ ersity of [facility] Body height 2021-06-19 16:12:00 162.6 cm [facility] Body weight 2021-06-19 16:12:00 93.396 kg [facility] BMI 2021-06-19 16:12:00 35.34 kg/m2 [facility] Systolic blood 2021-06-13 21:56:00 124 mm[Hg] Univer sity of pressure [facility] Diastolic blood 2021-06-13 21:56:00 79 mm[Hg] Unive rsity of pressure [facility] Heart rate 2021-06-13 21:56:00 66 /min [facility] Body temperature 2021-06-13 21:56:00 36.67 Kalyn [facility] Respiratory rate 2021-06-13 21:56:00 16 /min Univ ersity [facility] Body height 2021-06-13 21:56:00 162.6 cm [facility] Body weight 2021-06-13 21:56:00 93.214 kg [facility] BMI 2021-06-13 21:56:00 35.27 kg/m2 [facility] Systolic blood 2021-06-11 13:14:00 130 mm[Hg] Univer sity of pressure [facility] Diastolic blood 2021-06-11 13:14:00 83 mm[Hg] Unive rsity of pressure [facility] Heart rate 2021-06-11 13:14:00 61 /min [facility] Body temperature 2021-06-11 13:14:00 36.78 Kalyn [facility] Respiratory rate 2021-06-11 13:14:00 16 /min Univ [facility] Body weight 2021-06-11 13:14:00 93.078 kg [facility] BMI 2021-06-11 13:14:00 35.22 kg/m2 [facility] Systolic blood 2019-08-03 18:55:00 118 mm[Hg] Univer sity of pressure [facility] Diastolic blood 2019-08-03 18:55:00 69 mm[Hg] Unive rsity of pressure [facility] Heart rate 2019-08-03 18:55:00 69 /min [facility] Body temperature 2019-08-03 18:55:00 36.67 Kalyn [facility] Respiratory rate 2019-08-03 18:55:00 18 /min Univ ersity [facility] Body height 2019-08-03 18:55:00 162.6 cm [facility] Body weight 2019-08-03 18:55:00 90.266 kg [facility] BMI 2019-08-03 18:55:00 34.16 kg/m2 [facility] Systolic blood 2019-07-26 14:02:00 114 mm[Hg] Univer sity of pressure [facility] Diastolic blood 2019-07-26 14:02:00 64 mm[Hg] Unive rsity of pressure [facility] Heart rate 2019-07-26 14:02:00 56 /min [facility] Body temperature 2019-07-26 14:02:00 36.78 Kalyn [facility] Respiratory rate 2019-07-26 14:02:00 18 /min Univ [facility] Body height 2019-07-26 14:02:00 162.6 cm [facility] Body weight 2019-07-26 14:02:00 87.091 kg [facility] BMI 2019-07-26 14:02:00 32.96 kg/m2 [facility] Systolic blood 2019-07-23 20:14:00 129 mm[Hg] Univer sity of pressure [facility] Diastolic blood 2019-07-23 20:14:00 76 mm[Hg] Unive rsity of pressure [facility] Heart rate 2019-07-23 20:14:00 87 /min [facility] Body height 2019-07-23 20:14:00 162.6 cm [facility] Body weight 2019-07-23 20:14:00 88.451 kg [facility] BMI 2019-07-23 20:14:00 33.47 kg/m2 [facility] Systolic blood 2019-07-19 14:22:00 119 mm[Hg] Univer sity of pressure [facility] Diastolic blood 2019-07-19 14:22:00 67 mm[Hg] Unive rsity of pressure [facility] Heart rate 2019-07-19 14:22:00 80 /min [facility] Body temperature 2019-07-19 14:22:00 36.94 Kalyn Univ [facility] Respiratory rate 2019-07-19 14:22:00 18 /min Univ ersity [facility] Body height 2019-07-19 14:22:00 162.6 cm [facility] Body weight 2019-07-19 14:22:00 88.451 kg [facility] BMI 2019-07-19 14:22:00 33.47 kg/m2 [facility] Systolic blood 2019-07-16 21:47:00 126 mm[Hg] Univer sity of pressure [facility] Diastolic blood 2019-07-16 21:47:00 73 mm[Hg] Unive rsity of pressure [facility] Heart rate 2019-07-16 21:47:00 72 /min [facility] Body temperature 2019-07-16 21:47:00 36.89 Kalyn [facility] Respiratory rate 2019-07-16 21:47:00 20 /min Univ ersity [facility] Body weight 2019-07-16 21:47:00 83.915 kg [facility] BMI 2019-07-16 21:47:00 31.76 kg/m2 Universi ty of [facility] Oxygen saturation in 2019-07-16 21:47:00 99 /min University of Arterial blood by [facility] Pulse oximetry Branch Systolic blood 2019-07-13 13:23:00 111 mm[Hg] Univer sity of pressure [facility] Diastolic blood 2019-07-13 13:23:00 72 mm[Hg] Unive rsity of pressure [facility] Heart rate 2019-07-13 13:23:00 67 /min Universi ty of [facility] Body temperature 2019-07-13 13:23:00 36.72 Kalyn Univ ersity of [facility] Respiratory rate 2019-07-13 13:23:00 18 /min Univ ersity of [facility] Body weight 2019-07-13 13:23:00 89.359 kg [facility] BMI 2019-07-13 13:23:00 33.81 kg/m2 [facility] Systolic blood 2019-07-05 14:34:00 115 mm[Hg] Univer sity of pressure [facility] Diastolic blood 2019-07-05 14:34:00 68 mm[Hg] Unive rsity of pressure [facility] Heart rate 2019-07-05 14:34:00 65 /min Universi ty of [facility] Body temperature 2019-07-05 14:34:00 36.5 Kalyn [facility] Respiratory rate 2019-07-05 14:34:00 18 /min Univ ersity of [facility] Body height 2019-07-05 14:34:00 162.6 cm [facility] Body weight 2019-07-05 14:34:00 88.27 kg [facility] BMI 2019-07-05 14:34:00 33.40 kg/m2 [facility] Systolic blood 2019-06-28 18:04:00 106 mm[Hg] Univer sity of pressure [facility] Diastolic blood 2019-06-28 18:04:00 66 mm[Hg] Unive rsity of pressure [facility] Heart rate 2019-06-28 18:04:00 67 /min [facility] Body temperature 2019-06-28 18:04:[address] [facility] Respiratory rate 2019-06-28 18:04:00 18 /min [facility] Body weight 2019-06-28 18:04:00 88.089 kg [facility] BMI 2019-06-28 18:04:00 33.33 kg/m2 [facility] Procedures Procedure Date / Time Performed Performing Clinician [facility] e POCT TEST 2021-07-04 14:24:00 Stephanie Ndiaye [facility] POCT TEST 2021-06-19 16:15:00 Stephanie Ndiaye [facility] POCT TEST 2021-06-13 22:30:00 Stephanie Ndiaye [facility] POCT TEST 2021-06-11 13:18:00 Stephanie Ndiaye [facility] ASSIGNMENT OF BENEFITS 2021-06-11 12:59:16 Doctor Unassigned, No [facility] POCT URINALYSIS W/O 2019-07-26 00:00:00 Angela Nelson [facility] SPECIFIC GRAVITY [facility] NOTICE OF PRIVACY 2019-07-16 21:40:40 Doctor Unassigned, No Univ [facility] PRACTICES [facility] CONSENT/REFUSAL FOR 2019-07-16 21:40:24 Doctor Unassigned, No [facility] DIAGNOSIS AND [facility] TREATMENT Encounters Start End Encounter Admission Attending Care Care Encounter Source Date/Time Date/Time Type Type Clinicians Facility Department ID 2021-11-14 2021-11-14 Outpatient R SENTHIL [facility] [id number] Univers 14:45:00 14:45:00 STEPHANIE [id number] itcortney o f [facility] 2021-10-04 2021-10-04 Outpatient R NABIL [facility] [id number] Univers 15:30:00 15:30:00 JESSICA mark [facility] 2021-10-04 2021-10-04 Outpatient Kirk FERRER [facility] [id number] Univers 09:45:00 09:45:00 JESSICA [id number] [facility] 2021-10-04 2021-10-04 Outpatient Kirk FERRER [facility] [id number] Univers 09:45:00 09:45:00 JESSICA [facility] 2021-07-09 2021-07-09 [email or web address] [id number] 00:00:00 00:00:00 Rosearlnda R [employer] [id number] REGIONAL [id number] MATERNAL [id number] & CHILD [address] [place] [address] 2021-07-09 2021-07-09 [place] [email or web address] [id number] [facility] 00:00:00 00:00:00 Rosearlnda R [employer] [id number] [facility] [id number] Raymon as MATERNAL [phone] Med ical & CHILD [address] [place] [address] 2021-07-04 2021-07-04 Office [email or web address] [id number] 08:44:49 09:30:49 Visit Nubianda R [employer] [id number] REGIONAL [id number] MATERNAL [id number] & CHILD [address] [place] [address] 2021-07-04 2021-07-04 Office [email or web address] [id number] Univers 08:44:49 09:30:49 Visit Rosnda R [employer] [id number] [facility] [id number] Raymon as MATERNAL [phone] [facility] [address] [place] [address] 2021-07-04 2021-07-04 Outpatient Kirk NDIAYE [facility] [id number] Univers 08:45:00 08:45:00 KAYCEENDA [id number] ity o f [facility] 2021-07-04 2021-07-04 Outpatient Kirk NDIAYE [facility] [id number] Univers 08:45:00 08:45:00 KAYCEENDA ity o f [facility] 2021-06-25 2021-06-25 Outpatient R [facility] [id number] Univers 08:00:00 08:00:00 [id number] ity [facility] 2021-06-25 2021-06-25 Outpatient R [facility] [id number] Univers 08:00:00 08:00:00 ity [facility] 2021-06-25 2021-06-25 Outpatient R LUCIARICHARD, [facility] [id number] Univers 08:00:00 08:00:00 ROXANA mark o f [facility] 2021-06-19 2021-06-19 Nurse Visit, Ramirez Nurse [facility] 1.2 .[id number] [id number] Univers 10:57:49 11:12:09 Visit Roxana Vanegas [employer] [id number]. [address] [facility] [id number] Raymon as MATERNAL [id number] [facility] [address] [place] [address] 2021-06-19 2021-06-19 Outpatient [facility] [id number] Univers 11:00:00 11:00:00 [id number] ity [facility] 2021-06-19 2021-06-19 Outpatient R LUCIARICHARD, [facility] [id number] Univers 11:00:00 11:00:00 ROXANA teresacortney leatha frances [facility] 2021-06-18 2021-06-18 Telephone [facility] [id number] Univers 00:00:00 00:00:00 Nicolasa R [employer] [id number] [facility] [id number] Raymon as MATERNAL [id number] [facility] [address] [place] [address] 2021-06-18 2021-06-18 Telephone [facility] [id number] Univers 00:00:00 00:00:00 Roshunda R [employer] [id number] [facility] [id number] Raymon as MATERNAL [id number] [facility] & CHILD [address] [place] [address] 2021-06-13 2021-06-13 Office Senthil [facility] 1.2.840.114 [id number] Univers 16:45:20 17:41:30 Visit Stephanie Bradley [employer] [id number] [facility] [id number] Raymon as MATERNAL [id number] [address] 2021-06-13 2021-06-13 [facility] [id number] Univers 16:45:00 16:45:00 [facility] [id number] [place] [facility] 2021-06-13 2021-06-13 Outpatient R SENTHIL [facility] [id number] Univers 16:45:00 16:45:00 [facility] 2021-06-11 2021-06-11 Nurse Visit, [facility] Nurse [facility] 1.2 .840.114 [id number] Univers 08:00:49 08:22:47 Visit Roxana Vanegas [employer] 350.1.13. [address] [facility] [id number] Raymon as MATERNAL [id number] [address] 2021-06-11 2021-06-11 Outpatient R [facility] [id number] Univers 08:00:00 08:00:[address] [facility] 2021-06-11 2021-06-11 [facility] [id number] Univers 08:00:00 08:00:00 ROXANA mark o [facility] 2021-06-11 2021-06-11 Orders Doctor ISAMAR 1.2.840.114 [id number] Univers 00:00:00 00:00:00 Only Unassigned, ARIELLE [id number] ity of Catharine [facility] 4.2.7.2.686 Raymon as [id number] [address] 2020-09-26 2020-09-26 Outpatient R ANGELA NELSON [facility] [id number] Univers 13:30:00 13:30:[address] [facility] 2019-08-03 2019-08-03 Routine Angela Nelson [facility] [id number] Univers 13:22:45 14:24:06 [place] 350.1.13.10 ity of [id number] [id number] [address] 2019-07-26 2019-07-26 Routine Angela Nelson [facility] [id number] [facility] 08:15:29 09:28:53 [place] [id number] ity of [id number] [id number] [address] 2019-07-23 2019-07-23 Office Nate Busch [facility] 1.2.840.114 [id number] [facility] 15:05:29 17:04:17 Visit Health 350.1.13.10 it [place] [id number] [address] Office Building 2019-07-19 2019-07-19 Routine Priya Casper [facility] 1.2.840.11 [id number] Univers 09:13:48 09:31:10 Angela Nelson 350.1.13.10 ity of [id number] [id number] [address] 2019-07-16 2019-07-16 Emergency Oziel, [facility] [id number] Univers 16:50:12 18:55:00 Nia S Dora 350.1.13.10 i ty of [place].2.[place] [id number] [place] [id number] [place] 2019-07-13 2019-07-13 Office Whit [facility] 1.2.840.114 [id number] Univers 08:07:13 09:09:34 Visit ent, [facility] at 350.1.13.10 ity of [facility] [id number] [id number] [address] 2019-07-05 2019-07-05 Routine Angela Nelson [facility] [id number] Univers 09:21:11 09:43:55 [place] 350.1.13.10 ity of [place]2.[place] [id number] [address] 2019-06-28 2019-06-28 Routine Angela Nelson [facility] [id number] Univers 12:55:20 13:16:43 [place] [id number] ity of [id number] [phone] [address] Results Test Description Test Time Test Comments Results Result Comments Source POCT TEST 2021-07-04 14:24:00 Test Item Value Reference Range Interpretation Comme nts POCT PREG (test code = 1605) Negative On board controls acceptable with C Line (test code = 3574) Yes POCT PREG LOT # (test code = 3575) POCT PREG TEST DATE (test code = 3576) Lab Interpretation (test code = 38463-8) Normal [facility] [id number] 14:24:00 Test Item Value Reference Range Interpretation Comments POCT PREG (test code = 1605) Negative On board controls acceptable with C Yes Line (test code = 3574) POCT PREG LOT # (test code = 3575) POCT PREG TEST DATE (test code = 3576) Lab Interpretation (test code = Normal 59267-4) [facility] [id number] 14:24:00 Test Item Value Reference Range Interpretation Comments POCT PREG (test code = 1605) Negative On board controls acceptable with C Yes Line (test code = 3574) POCT PREG LOT # (test code = 3575) POCT PREG TEST DATE (test code = 3576) Lab Interpretation (test code = Normal 93080-0) [facility] [id number] 16:15:00 Test Item Value Reference Range Interpretation Comments POCT PREG (test code = 1605) Negative On board controls acceptable with C Yes Line (test code = 3574) POCT PREG LOT # (test code = 3575) POCT PREG TEST DATE (test code = 3576) [facility] [id number] 22:30:00 Test Item Value Reference Range Interpretation Comments POCT PREG (test code = 1605) Negative On board controls acceptable with C Yes Line (test code = 3574) POCT PREG LOT # (test code = 3575) POCT PREG TEST DATE (test code = 3576) [facility] [id number] 22:30:00 Test Item Value Reference Range Interpretation Comments POCT PREG (test code = 1605) Negative On board controls acceptable with C Yes Line (test code = 3574) POCT PREG LOT # (test code = 3575) POCT PREG TEST DATE (test code = 3576) [facility] [id number] 13:18:00 Test Item Value Reference Range Interpretation Comments POCT PREG (test code = 1605) Negative On board controls acceptable with C Yes Line (test code = 3574) POCT PREG LOT # (test code = 3575) POCT PREG TEST DATE (test code = 3576) Lab Interpretation (test code = Normal 79376-9) [facility] URINALYSIS W/O SPECIFIC [id number] 14:56:00 Test Item Value Reference Range Interpretation Comments POCT PH U (test code = 3254) 5 mg/dl 5-8 POCT U LEUK EST (test code = negative Negative - Negative 3263) POCT U NIT (test code = 3262) negative Negative - Negative POCT U PROT (test code = 3259) negative Negative - Negative POCT U GLU (test code = 3256) negative Negative - Negative POCT U KETONE (test code = 3258) negative Negative - Negative POCT U BLD (test code = 3257) negative Negative - Negative Lab Interpretation (test code = Normal 54107-1) [facility]
--- NOTE | 2021-10-18 13:56 | ER ---
Nurse's Notes [facility] Name: Harper Cool Age: 26 yrs Sex: Female : 1995 Arrival Date: 10/18/2021 Time: 12:57 Bed 10 Private MD: Diagnosis: Ingrown toenail Presentation: 10/18 13:07 Chief complaint: Patient states: pain and redness to left great toe X 2 days, had her iw toes done recently , has had ingrown toenails before , states there was some pus and blood that came out of the corner. Coronavirus screen: At this time, the client does not indicate any symptoms associated with coronavirus-19. Ebola Screen: Patient negative for fever greater than or equal to 101.5 degrees Fahrenheit, and additional compatible Ebola Virus Disease symptoms Patient denies exposure to infectious person. Patient denies travel to an Ebola-affected area in the 21 days before illness onset. No symptoms or risks identified at this time. Initial Sepsis Screen: Does the patient meet any 2 criteria? No. Patient's initial sepsis screen is negative. Does the patient have a suspected source of infection? No. Patient's initial sepsis screen is negative. Risk Assessment: Do you want to hurt yourself or someone else? Patient reports no desire to harm self or others. Onset of symptoms was October 16, 2021. 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 - Social history:: Smoking status: Patient denies any tobacco usage or history of. Screenin:18 Abuse screen: Denies threats or abuse. Nutritional screening: No deficits noted. tw2 Tuberculosis screening: No symptoms or risk factors identified. Fall Risk None identified. Assessment: 13:10 General: Appears in no apparent distress. Behavior is calm, cooperative, appropriate tw2 for age. Pain: Pain: Complains of pain in Left first toenail. 13:19 Neuro: Level of Consciousness is awake, alert, obeys commands, Oriented to person, tw2 place, time, situation. Respiratory: Airway is patent Respiratory effort is even, unlabored, Respiratory pattern is regular, symmetrical. Derm: Reports blood and pus draining from LEFT great toenail. i think the nail place cut too deep this time. 13:50 Reassessment: provider at bedside at this time. tw2 14:00 Reassessment: Patient appears in no apparent distress at this time. Patient is alert, tw2 oriented x 3, equal unlabored respirations, skin warm/dry/pink. Vital Signs: 13:07 BP 122 / 72; Pulse 75; Resp 16; Temp 97.8; Pulse Ox 100% on R/A; Weight 90.72 kg; iw Height 5 ft. 5 in. (165.10 cm); 13:07 Body Mass Index 33.28 (90.72 kg, 165.10 cm) iw ED Course: 12:57 Patient arrived in ED. am2 13:09 Triage completed. iw 13:10 Bed in low position. Call light in reach. tw2 13:13 Christy Nicolas, RN is Primary Nurse. tw2 13:18 Arm band placed on. tw2 13:48 Scott Cabezas PA is PHCP. jr8 13:48 William Serrano MD is Attending Physician. jr8 13:55 Jasbir Guan DPM is Referral Physician. jr8 14:00 No provider procedures requiring assistance completed. Patient did not have IV access tw2 during this emergency room visit. Administered Medications: No medications were administered Outcome: 13:56 Discharge ordered by . jr8 14:00 Discharged to home ambulatory. tw2 14:00 Condition: stable 14:00 Discharge instructions given to patient, Instructed on discharge instructions, follow up and referral plans. medication usage, Demonstrated understanding of instructions, follow-up care, medications, Prescriptions given X 2. 14:00 Patient left the ED. tw2 Signatures: Jenae Coronel RN RN Scott Cabezas PA PA 8 Christy Nicolas RN RN tw2 Madeline Barron am2 Corrections: (The following items were deleted from the chart) 13:25 13:10 Pain: tw2 tw2
--- NOTE | 2021-10-18 13:56 | EDPHYS ---
Physician Documentation [facility] Name: Harper Cool Age: 26 yrs Sex: Female : 1995 Arrival Date: 10/18/2021 Time: 12:57 Bed 10 Private MD: ED Physician William Serrano HPI: 10/18 13:53 This 26 yrs old Female presents to ER via Ambulatory with complaints of toe jr8 pain. 13:53 Onset: The symptoms/episode began/occurred gradually. Modifying factors: The symptoms jr8 are alleviated by nothing, the symptoms are aggravated by weight bearing, movement. Associated signs and symptoms: The patient has no apparent associated signs or symptoms. Severity of symptoms: At their worst the symptoms were mild, in the emergency department the symptoms are unchanged. The patient has not experienced similar symptoms in the past. The patient has not recently seen a physician. This is a 26-year-old female patient that presented to the emergency room with complaints of left great toe pain. Feels that she has an ingrown toenail.. 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 - Social history:: Smoking status: Patient denies any tobacco usage or history of. ROS: 13:53 Constitutional: Negative for fever, chills, and weight loss, Skin: Negative for injury, jr8 rash, and discoloration, Neuro: Negative for headache, weakness, numbness, tingling, and seizure. 13:53 MS/extremity: Positive for pain, swelling, tenderness, of the Left great toe. 13:53 All other systems are negative. Exam: 13:53 Constitutional: This is a well developed, well nourished patient who is awake, alert, jr8 and in no acute distress. Cardiovascular: Regular rate and rhythm with a normal S1 and S2. No gallops, murmurs, or rubs. Normal PMI, no JVD. No pulse deficits. Respiratory: Lungs have equal breath sounds bilaterally, clear to auscultation and percussion. No rales, rhonchi or wheezes noted. No increased work of breathing, no retractions or nasal flaring. Skin: Warm, dry with normal turgor. Normal color with no rashes, no lesions, and no evidence of cellulitis. Neuro: Awake and alert, GCS 15, oriented to person, place, time, and situation. Motor strength 5/5 in all extremities. Sensory grossly intact. 13:53 Musculoskeletal/extremity: Extremities: grossly normal except: noted in the Left great toe: Patient has mild swelling to the medial left great toe secondary to ingrown toenail. No purulent discharge or surrounding cellulitis at this time. Moderate tenderness palpation. Normal sensation with less than 2-second cap refill present. Remainder of extremities unremarkable.. Vital Signs: 13:07 BP 122 / 72; Pulse 75; Resp 16; Temp 97.8; Pulse Ox 100% on R/A; Weight 90.72 kg; iw Height 5 ft. 5 in. (165.10 cm); 13:07 Body Mass Index 33.28 (90.72 kg, 165.10 cm) iw MDM: 13:48 Patient medically screened. jr8 13:53 Data reviewed: vital signs, nurses notes, and as a result, I will discharge patient. jr8 Data interpreted: Pulse oximetry: on room air is 100 %. Interpretation: normal. Counseling: I had a detailed discussion with the patient and/or guardian regarding: the historical points, exam findings, and any diagnostic results supporting the discharge/admit diagnosis, the need for outpatient follow up, a cdl service technician, to return to the emergency department if symptoms worsen or persist or if there are any questions or concerns that arise at home. ED course: Discussed with patient that she needs to follow-up with podiatry for excision of the ingrown toenail. We will put her on antibiotic and anti-inflammatory to let it settle down in the meantime.. Administered Medications: No medications were administered Disposition: 17:25 Co-signature as Attending Physician, William Serrano MD I agree with the assessment and kdr plan of care. Disposition Summary: 10/18/21 13:56 Discharge Ordered Location: Home jr8 Problem: new jr8 Symptoms: have improved jr8 Condition: Stable jr8 Diagnosis - Ingrown toenail jr8 Followup: jr8 - With: Jasbir Guan DPM - When: 2 - 3 days - Reason: Recheck today's complaints, Continuance of care, Re-evaluation by your physician Discharge Instructions: - Discharge Summary Sheet jr8 - Axel Guerrero jr8 Forms: - Medication Reconciliation Form jr8 - Thank You Letter jr8 - Antibiotic Education jr8 - Prescription Opioid Use jr8 Prescriptions: - cephalexin 500 mg Oral capsule - take 1 capsule by ORAL route every 8 hours for 5 days; 15 capsule; Refills: 0, jr8 Product Selection Permitted - Ibuprofen 800 mg Oral Tablet - take 1 tablet by ORAL route every 12 hours As needed take with food; 20 tablet; jr8 Refills: 0, Product Selection Permitted Signatures: William Serrano MD MD kdr Williams, Irene, RN RN iw Scott Cabezas PA PA jr8
[2021-10-18 14:20] VITALS: BP 122/72; TEMP 97.8; O2SAT 100
== END 2021-10-18 14:00 | disposition home or self-care (01) ==
LOC: ER 12:56
DX: L60.0 Ingrowing nail (principal)
CPT/HCPCS: 99282